=== PATIENT | female | born 1955 | race Caucasian/White ===

== ENCOUNTER 2023-04-11 07:53 | Inpatient (IN) | payer MEDICARE, OTHER ==
[2023-04-11 08:53] LABS: #Eosinphils 0.2 10x3/uL (0.0-0.5); #Monocytes 0.3 10x3/uL (0.0-1.1); #Neutrophils 2.2 10x3/uL (1.5-8.4); %Basophils 0.6 % (0.0-2.0); %Eosinophils 4.1 % (0.0-6.0); %Lymphocytes 40.9 % (18.0-47.0); %Monocytes 6.2 % (0.0-10.0); %Neutrophils 47.6 % (40.0-75.0); Hematocrit 33.5 % (34.9-44.5); Hemoglobin 10.9 g/dL (12.0-15.5); Mean Corpuscular HGB CONC 32.5 g/dL (32.0-36.0); Mean Corpuscular Hemoglobin 29.2 pg (27.0-33.0); Mean Corpuscular Volume 89.8 fl (81.6-98.3); Mean Platelet Volume 9.7 fl (7.4-10.4); Platelet Count 193 10x3/uL (150-450); RBC Distribution Width 13.4 % (11.5-14.5); Red Blood Cell (RBC) Count 3.73 10x6/uL (3.90-5.03); White Blood Cell (WBC) Count 4.7 10x3/uL (3.5-10.5)
[2023-04-11 08:58] LABS: PTT 21.8 sec (22.0-33.0); Prothrombin Time 10.6 sec (9.5-12.1)
[2023-04-11 09:08] LABS: ALT (SGPT) 42 U/L (8-55); AST (SGOT) 31 U/L (5-34); Albumin 4.5 g/dL (3.4-4.8); Alkaline Phosphatase 44 U/L (40-110); Anion Gap 16 mmol/L (10-20); BUN (Urea Nitrogen) 29 mg/dL (9.8-20.1); Bilirubin, Total 0.4 mg/dL (0.2-1.2); Calc. Creatinine Clearance 0 mL/min (70-130); Calcium 9.2 mg/dL (7.8-10.44); Carbon Dioxide 22 mmol/L (23-31); Chloride 107 mmol/L (98-107); Estimated GFR 53; Globulin 2.5 g/dL (2.4-3.5); Glucose 95 mg/dL (80-115); Potassium 4.5 mmol/L (3.5-5.1); Sodium 140 mmol/L (136-145)
[2023-04-11] MEDS ORDERED: Lidocaine 1% (PF) 30 ML VIAL ONE (09:21)
[2023-04-11] MEDS ORDERED: Nitroglycerin 50 MG/250 ML BOT 0 ML ONE (09:21)
[2023-04-11] MEDS ORDERED: Heparin 10,000 UNITS/ 10 ML VIAL ONE (09:22)
[2023-04-11] MEDS ORDERED: Adenosine 6 MG/2 ML VIAL ONE (09:22)
[2023-04-11] MEDS ORDERED: Sodium Chloride 0.9% 1,000 ML ONE (09:23)
[2023-04-11] MEDS ORDERED: Atropine Sulfate 0.4 mg/1 ml Vial ONE (09:24)
[2023-04-11] MEDS ORDERED: PHENYLEPHRINE-NS 100 MCG/ML 10 ML SYRINGE ONE (09:40)
[2023-04-11] MEDS ORDERED: Midazolam HCl 2 mg/2 ml Vial ONE (10:12)
[2023-04-11] MEDS ORDERED: fentaNYL 50 mcg/mL 1 mL Vial ONE (10:12)
[2023-04-11] MEDS ORDERED: Iopamidol 300 61% 100 ML VIAL FS ONE (10:21)
[2023-04-11] MEDS ORDERED: hydrALAZINE 20 MG/ML VIAL ONE (10:53)
== END 2023-04-11 13:25 | disposition home or self-care (01) | DRG 68 ==
LOC: CSHSDC 07:53 → CSHICU 09:54
PROVIDERS: ADMIT Internal Medicine Cardiovascular Disease; ATTEND Internal Medicine Cardiovascular Disease
PROC: B31R1ZZ Fluoroscopy of Intracranial Arteries using Low Osmolar Contrast (ICD-10-PCS; principal; 2023-04-11)
PROC: B3151ZZ Fluoroscopy of Bilateral Common Carotid Arteries using Low Osmolar Contrast (ICD-10-PCS; 2023-04-11)
PROC: B4101ZZ Fluoroscopy of Abdominal Aorta using Low Osmolar Contrast (ICD-10-PCS; 2023-04-11)
DX: I65.23 Occlusion and stenosis of bilateral carotid arteries (principal)
CPT/HCPCS: 36223; 71046; 80053; 85025; 85610; 85730; 93005; 93010; 99152; 99153; C1760; C1769; J0153; J0360; J0461; J1644; J2001; J2250; J3010; J7050; Q9967